=== PATIENT | female | born 1960 | race Caucasian/White ===

== ENCOUNTER → 2016-12-22 | Outpatient (CLI) | payer BC ==
[2016-06-22 21:34] VITALS: BP 168/100
[~2016-12-22] MED LIST: ASPI-482 PO; CETI10TA16 PO; CIPR250T30 PO; CIPR500T94 PO; HYDR-971 PO; METR500T8 PO; PROG100C2 PO; SIMV20TA3 PO; TRIA10.8 NS; ZOLP5TAB5 PO; [UNRECOGNIZED DRUG - CODE] TP
--- NOTE | 2016-12-22 13:54 | KCIC ---
Bilateral digital screening mammograms: Reason for examination: Routine screening. Comparison is made to previous studies dated 05/07/2015 and 05/03/2014. The skin and nipples show no abnormalities. No abnormal axillary lymph nodes are seen. The breast parenchyma shows scattered fibroglandular density. (Breast density: Category B.) There are no dominant masses, suspicious calcifications or architectural distortions. Impression: No evidence of malignancy. Recommend routine screening. BI-RADS Category 1: Negative. "Our facility is accredited by the [employer] Mammography [employer]." This patient's information has been entered into a reminder system for the patient to be notified with the results of her examination and a target date for the next mammogram. Electronically signed by: Asia Coleman MD (12/22/2016 1:51 PM)
== END | disposition home or self-care (01) ==
LOC: KCIC MAMMO 12:00
PROVIDERS: ATTEND Obstetrics & Gynecology
DX: Z12.31 Encounter for screening mammogram for malignant neoplasm of breast (principal)
CPT/HCPCS: G0202; 77067

== ENCOUNTER 2019-06-05 06:57 | Emergency (ER) | payer SELFPAY ==
[~2019-06-05] VITALS: Ht 165.1 cm; Wt 65.3 kg
[~2019-06-05 06:57] MED LIST changes: +HYDR-3164 PO; -HYDR-971 PO; +METR-34 PO; -METR500T8 PO; +PROG100C10 PO; -PROG100C2 PO; +SIMV20TA18 PO; -SIMV20TA3 PO
[2019-06-05] MEDS ORDERED: IV NORMAL SALINE 1000ML BAG 1,000 ML IV SCH (07:13)
[2019-06-05] MEDS ORDERED: KETOROLAC 30 MG/ML VIAL. IV ONE (07:15)
--- NOTE | 2019-06-05 07:18 | PHYS DOC ---
Past Medical History Past Medical History: CAD, COPD, Diverticulitis, High Cholesterol Additional Past Medical Histor: 20% & 40% cardiac occussions, menapusal Past Surgical History: Other Additional Past Surgical Histo: elbow, neck Alcohol Use: Heavy Drug Use: None Adult General Chief Complaint Chief Complaint: ABDOMINAL PAIN [facility] HPI Patient is a 59 year old female patient with history of dyslipidemia, coronary artery disease, COPD and diverticulitis who presents with complaint of abdominal pain. Patient complaining of intermittent episodes of lower abdominal and supra pubic pain that started 5 days ago without radiation as a aching pain and rated her pain 3 or 4. Patient states she has constipation and took MiraLAX and had 3 episodes of a small amount of hard stool with bright red blood when she wiped herself. Patient states she woke up at 2 AM today because of severe suprapubic sharp pain with radiation to left flank as a constant pain without nausea, vomiting, urinary symptoms, fever and chills, anorexia. Patient had flatus and urinated without problem today. Patient rated her pain 7/10 at arrival to ER. Review of Systems Review of Systems Constitutional: Denies fever or chills [] Eyes: Denies change in visual acuity, redness, or eye pain [] HENT: Denies nasal congestion or sore throat [] Respiratory: Denies cough or shortness of breath [] Cardiovascular: No additional information not addressed in HPI [] GI: Reports abdominal pain, constipation, denies nausea, vomiting, bloody stools or diarrhea [] : Denies dysuria or hematuria [] Musculoskeletal: Denies back pain or joint pain [] Integument: Denies rash or skin lesions [] Neurologic: Denies headache, focal weakness or sensory changes [] Endocrine: Denies polyuria or polydipsia [] All other systems were reviewed and found to be within normal limits, except as documented in this note. Current Medications Current Medications Current Medications Medications (Trade) Dose Ordered Sig/Dewayne Start Time Stop Time Status Last Admin Dose Admin Ketorolac Tromethamine (Toradol 30mg Vial) 30 mg 1X ONCE 06/05/19 07:15 06/05/19 07:17 DC 06/05/19 07:42 30 MG Sodium Chloride 1,000 ml @ 1,000 mls/hr Q1H 06/05/19 07:13 06/05/19 08:12 DC 06/05/19 07:43 1,000 MLS/HR Allergies Allergies Allergies Coded Allergies Type Severity Reaction Last Updated Verified Sulfa (Sulfonamide Antibiotics) Allergy Unknown anaphalxis 08/29/15 Yes Physical Exam Physical Exam Constitutional: Well developed, well nourished, moderate distress, non-toxic a ppearance. [] HENT: Normocephalic, atraumatic, bilateral external ears normal, oropharynx moist, no oral exudates, nose normal. [] Eyes: PERRLA, EOMI, conjunctiva normal, no discharge. [] Neck: Normal range of motion, no tenderness, supple, no stridor. [] Cardiovascular:Heart rate regular rhythm, no murmur [] Lungs & Thorax: Bilateral breath sounds clear to auscultation [] Abdomen: Bowel sounds normal, soft, left lower quadrant and suprapubic guarding, no tenderness, no masses, no pulsatile masses. [] Skin: Warm, dry, no erythema, no rash. [] Back: No tenderness, no CVA tenderness. [] Extremities: No tenderness, no cyanosis, no clubbing, ROM intact, no edema. [] Neurologic: Alert and oriented X 3, normal motor function, normal sensory function, no focal deficits noted. [] Psychologic: Affect normal, judgement normal, mood normal. [] Current Patient Data Vital Signs Vital Signs Date Time Temp Pulse Resp B/P (MAP) Pulse Ox O2 Delivery O2 Flow Rate FiO2 06/05/19 07:17 97.9 78 16 130/89 (103) 98 Room Air 97.9 Lab Values Laboratory Tests Test 06/05/19 07:16 White Blood Count 5.9 x10^3/uL (4.0-11.0) Red Blood Count 4.55 x10^6/uL (3.50-5.40) Hemoglobin 14.6 g/dL (12.0-15.5) Hematocrit 43.9 % (36.0-47.0) Mean Corpuscular Volume 96 fL (79-100) Mean Corpuscular Hemoglobin 32 pg (25-35) Mean Corpuscular Hemoglobin Concent 33 g/dL (31-37) Red Cell Distribution Width 14.1 % (11.5-14.5) Platelet Count 352 x10^3/uL (140-400) Neutrophils (%) (Auto) 51 % (31-73) Lymphocytes (%) (Auto) 35 % (24-48) Monocytes (%) (Auto) 9 % (0-9) Eosinophils (%) (Auto) 5 % (0-3) H Basophils (%) (Auto) 1 % (0-3) Neutrophils # (Auto) 3.0 x10^3/uL (1.8-7.7) Lymphocytes # (Auto) 2.1 x10^3/uL (1.0-4.8) Monocytes # (Auto) 0.5 x10^3/uL (0.0-1.1) Eosinophils # (Auto) 0.3 x10^3/uL (0.0-0.7) Basophils # (Auto) 0.1 x10^3/uL (0.0-0.2) Prothrombin Time 12.2 SEC (11.7-14.0) Prothrombin Time INR 0.9 (0.8-1.1) Urine Collection Type Unknown Urine Color Yellow Urine Clarity Clear Urine pH 5.5 Urine Specific [place] 1.025 Urine Protein Negative mg/dL (NEG-TRACE) Urine Glucose (UA) Negative mg/dL (NEG) Urine Ketones (Stick) Negative mg/dL (NEG) Urine Blood Moderate (NEG) Urine Nitrite Negative (NEG) Urine Bilirubin Negative (NEG) Urine Urobilinogen Dipstick 0.2 mg/dL (0.2 mg/dL) Urine Leukocyte Esterase Moderate (NEG) Urine RBC 1-2 /HPF (0-2) Urine WBC 5-10 /HPF (0-4) Urine Squamous Epithelial Cells Mod /LPF Urine Bacteria Moderate /HPF (0-FEW) Urine Mucus Slight /LPF Sodium Level 139 mmol/L (136-145) Potassium Level 3.5 mmol/L (3.5-5.1) Chloride Level 101 mmol/L (98-107) Carbon Dioxide Level 26 mmol/L (21-32) Anion Gap 12 (6-14) Blood Urea Nitrogen 14 mg/dL (7-20) Creatinine 1.0 mg/dL (0.6-1.0) Estimated GFR (Cockcroft-Gault) 56.6 BUN/Creatinine Ratio 14 (6-20) Glucose Level 100 mg/dL (70-99) H Calcium Level 9.2 mg/dL (8.5-10.1) Total Bilirubin 0.3 mg/dL (0.2-1.0) Aspartate Amino Transferase (AST) 18 U/L (15-37) Alanine Aminotransferase (ALT) 20 U/L (14-59) Alkaline Phosphatase 82 U/L (46-116) Total Protein 7.9 g/dL (6.4-8.2) Albumin 3.6 g/dL (3.4-5.0) Albumin/Globulin Ratio 0.8 (1.0-1.7) L Lipase 180 U/L (73-393) Ethyl Alcohol Level < 10 mg/dL (0-10) Laboratory Tests 06/05/19 07:16 Laboratory Tests 06/05/19 07:16 EKG EKG [] Radiology/Procedures Radiology/Procedures [][facility] [address] [place] [address] IMAGING REPORT Signed PATIENT: CEFERINO COE JACCOUNT: [id number] : 1960 LOCATION: ER AGE: 59 SEX: F EXAM STATUS: REG ER ORD. PHYSICIAN: YASH CARRASCO MD REASON: left lower quadrant and suprapubic pain x several days PROCEDURE: CT ABDOMEN PELVIS WO CONTRAST CT STUDY OF THE ABDOMEN AND PELVIS WITHOUT CONTRAST CLINICAL INDICATIONS: Left lower quadrant and suprapubic pain for several days. TECHNIQUE: Noncontrast helical CT scanning of the abdomen and pelvis was performed. Without contrast, the sensitivity to detect organ pathology and GI tract pathology is decreased. PQRS compliance Statement One or more of the following individualized dose reduction techniques were utilized for this study: 1. Automated exposure control 2. Adjustment of the mA and/or kV according to patient size 3. Use of iterative reconstruction technique COMPARISON: June 22, 2016 FINDINGS: The liver and spleen and pancreas are unremarkable on this noncontrast study. The gallbladder is normal in no extrahepatic biliary ductal dilatation seen. No adrenal mass is evident. No hydronephrosis or hydroureter or urinary tract stone is evident. Urinary bladder is not distended. No renal mass is seen on either side on this noncontrast study. No focal aneurysmal dilatation of the abdominal aorta is seen. No enlarged abdominal or pelvic lymphadenopathy is evident. Sigmoid diverticulosis is seen. There is mild pericolonic inflammatory change of the distal sigmoid colon consistent with mild diverticulitis. No free fluid or abscess or free intraperitoneal air is evident. No obstructive bowel pattern is evident. The appendix and terminal ileum are unremarkable. No lung base consolidative infiltrate is seen. No lytic process is seen. IMPRESSION: Mild sigmoid diverticulitis. Electronically signed by: Benjamin Montes MD (06/05/2019 7:51 AM) [facility] DICTATED and SIGNED BY: BENJAMIN MONTES MD DATE: 06/05/19 0751 Course & Med Decision Making Course & Med Decision Making Pertinent Labs and Imaging studies reviewed. (See chart for details) Evaluation of patient in ER showed 15-year-old female patient with complaining of lower abdominal pain intermittently for the last several days that getting worse since this morning. Patient admitted drinking alcohol 3 to 4 times a day. Patient felt better with IV fluid and Toradol and rated her pain 2/10. Labs was unremarkable except for mild UTI. CT abdomen and pelvis showed mild diverticulitis. Plan discharge patient home with diagnosis of diverticulitis and UTI and prescription of flexion and Cipro. I've spoken with the patient and/or caregivers. I've explained the patient's condition, diagnosis and treatment plan based on information available to me at this time. I've answered the patient's and/or caregivers questions and addressed any concerns. The patient and/or caregivers have a good understanding the patient's diagnosis, condition and treatment plan as can be expected at this point. Vital signs have been stabilized. The patient's condition is stable for discharge from the emergency department. The patient will pursue further outpatient evaluation with her primary care provider or other designated consulting physician as outlined in the discharge instructions. Patient and/or caregivers are agreeable to this plan of care and follow-up instructions have been explained in detail. The patient and/or caregivers have received these instructions in written format and expressed understanding of these discharge instructions. The patient and her caregivers are aware that if any significant change in condition or worsening of symptoms should prompt him to immediately return to this of the closest emergency department. If an emergent department is not readily available I would encourage him to call 911. Bernard Disclaimer Bernard Disclaimer This electronic medical record was generated, in whole or in part, using a voice recognition dictation system. Departure Departure Impression: Primary Impression: Acute diverticulitis Additional Impression: UTI (urinary tract infection) Disposition: 01 HOME, SELF-CARE (at 0 [phone]) Condition: IMPROVED Referrals: BARB COLLAZO MD (PCP) Patient Instructions: Diverticulitis, Urinary Tract Infection Additional Instructions: Drink plenty of liquids Follow-up with your primary care physician in 3-5 days Return to ER if not getting better Do not take solid food for the next 24 hours Scripts Naproxen (NAPROSYN) 500 Mg Tablet 1 TAB PO BID for pain, #20 TAB Prov: YASH CARRASCO MD 06/05/19 Metronidazole (FLAGYL) 500 Mg Tablet 1 TAB PO Q8HRS, #21 TAB Prov: YASH CARRASCO MD 06/05/19 Ciprofloxacin Hcl (CIPRO) 250 Mg Tablet 1 TAB PO BID for infection, #14 TAB Prov: YASH CARRASCO MD 06/05/19 Problem Qualifiers Additional Impression: UTI (urinary tract infection) Urinary tract infection type: site unspecified Hematuria presence: without hematuria Qualified Codes: N39.0 - Urinary tract infection, site not specified YASH CARRASCO MD Jun 05, 2019 07:18
[2019-06-05 07:28] LABS: BASO # 0.1 x10^3/uL (0.0-0.2); BASO % 1 % (0-3); BILIRUBIN,URINE NEGATIVE (NEG); CLARITY,URINE CLEAR; COLOR,URINE YELLOW; EOS # 0.3 x10^3/uL (0.0-0.7); EOS % 5 % (0-3); HEMATOCRIT 43.9 % (36.0-47.0); HEMOGLOBIN 14.6 g/dL (12.0-15.5); LYMPH # 2.1 x10^3/uL (1.0-4.8); LYMPH % 35 % (24-48); MEAN CORPUSCULAR HEMOGLOBIN 32 pg (25-35); MEAN CORPUSCULAR HGB CONC 33 g/dL (31-37); MEAN CORPUSCULAR VOLUME 96 fL (79-100); MONO # 0.5 x10^3/uL (0.0-1.1); MONO % 9 % (0-9); NEUT % 51 % (31-73); NITRITE,URINE NEGATIVE (NEG); PH,URINE 5.5; PLATELET COUNT 352 x10^3/uL (140-400); PROTEIN,URINE NEGATIVE (NEG-TRACE); RED BLOOD COUNT 4.55 x10^6/uL (3.50-5.40); RED CELL DISTRIBUTION WIDTH 14.1 % (11.5-14.5); UROBILINOGEN,URINE 0.2 mg/dL (0.2 mg/dL); WHITE BLOOD COUNT 5.9 x10^3/uL (4.0-11.0)
[2019-06-05 07:45] LABS: BACTERIA,URINE MODERATE /HPF (0-FEW); SQUAMOUS EPITHELIAL CELL,UR MOD /LPF
[2019-06-05 07:54] LABS: CALCIUM 9.2 mg/dL (8.5-10.1); GFR 56.6; POTASSIUM 3.5 mmol/L (3.5-5.1)
--- NOTE | 2019-06-05 07:54 | RAD ---
CT STUDY OF THE ABDOMEN AND PELVIS WITHOUT CONTRAST CLINICAL INDICATIONS: Left lower quadrant and suprapubic pain for several days. TECHNIQUE: Noncontrast helical CT scanning of the abdomen and pelvis was performed. Without contrast, the sensitivity to detect organ pathology and GI tract pathology is decreased. PQRS compliance Statement One or more of the following individualized dose reduction techniques were utilized for this study: 1. Automated exposure control 2. Adjustment of the mA and/or kV according to patient size 3. Use of iterative reconstruction technique COMPARISON: June 22, 2016 FINDINGS: The liver and spleen and pancreas are unremarkable on this noncontrast study. The gallbladder is normal in no extrahepatic biliary ductal dilatation seen. No adrenal mass is evident. No hydronephrosis or hydroureter or urinary tract stone is evident. Urinary bladder is not distended. No renal mass is seen on either side on this noncontrast study. No focal aneurysmal dilatation of the abdominal aorta is seen. No enlarged abdominal or pelvic lymphadenopathy is evident. Sigmoid diverticulosis is seen. There is mild pericolonic inflammatory change of the distal sigmoid colon consistent with mild diverticulitis. No free fluid or abscess or free intraperitoneal air is evident. No obstructive bowel pattern is evident. The appendix and terminal ileum are unremarkable. No lung base consolidative infiltrate is seen. No lytic process is seen. IMPRESSION: Mild sigmoid diverticulitis. Electronically signed by: Jerardo Montes MD (06/05/2019 7:51 AM) [facility]
[2019-06-05 08:00] LABS: ALBUMIN 3.6 g/dL (3.4-5.0); ALBUMIN/GLOBULIN RATIO 0.8 (1.0-1.7); TOTAL BILIRUBIN 0.3 mg/dL (0.2-1.0); TOTAL PROTEIN 7.9 g/dL (6.4-8.2)
[2019-06-05 08:05] LABS: PROTHROMBIN TIME PATIENT 12.2 SEC (11.7-14.0)
[2019-06-05] MEDS ORDERED: NAPR-683 PO (08:42)
[2019-06-05] MEDS ORDERED: CIPR250T30 PO (08:42)
[2019-06-05] MEDS ORDERED: METR500T PO (08:42)
[2019-06-05 09:30] VITALS: BP 132/81
== END 2019-06-05 09:30 | disposition home or self-care (01) ==
LOC: ER 06:57
DX: K57.32 Diverticulitis of large intestine without perforation or abscess without bleeding (principal); N39.0 Urinary tract infection, site not specified; I25.2 Old myocardial infarction; J44.9 Chronic obstructive pulmonary disease, unspecified; E78.00 Pure hypercholesterolemia, unspecified; F10.20 Alcohol dependence, uncomplicated; Z88.2 Allergy status to sulfonamides
CPT/HCPCS: 36415; 74176; 80053; 81001; 83690; 85025; 85610; 87086; 96374; 99285; G0480; J1885; J7030

== ENCOUNTER → 2020-08-30 | Outpatient (CLI) | payer SELFPAY ==
[~2020-08-30] MED LIST changes: +METR500T PO; +NAPR-683 PO
--- NOTE | 2020-08-30 18:05 | KCIC ---
BILATERAL SCREENING MAMMOGRAM, 3-D History: Routine screening. Comparison: Bilateral mammogram December 22, 2016. Technique: MLO and CC digital tomosynthesis (3D) images obtained. Radiologist reviewed these images on dedicated workstation. Findings: Breast Tissue Density B : There are scattered areas of fibroglandular density. There are no dominant masses, suspicious microcalcifications or architectural distortion. IMPRESSION: No mammographic evidence of malignancy. Recommend routine screening. BI-RADS category 1: Negative. The images were reviewed with computer-aided detection. Patient information is entered into reminder system with a target due date for the next screening [facility]. Mammography is the most sensitive method for finding small breast cancers, but it does not detect the m all and is not a substitute for careful clinical examination. A negative mammogram does not negate a clinically suspicious finding and should not result in delay in biopsying a clinically suspicious a bnormality. "Our facility is accredited by the [employer] Mammography Program." Electronically signed by: John Narayanan MD (08/30/2020 6:03 PM) [email or web address]
== END ==
LOC: KCIC MAMMO 08:28
PROVIDERS: ATTEND Family Medicine
DX: Z12.31 Encounter for screening mammogram for malignant neoplasm of breast (principal)
CPT/HCPCS: 77067

== ENCOUNTER → 2021-09-05 | Outpatient (CLI) | payer OTHER ==
--- NOTE | 2021-09-08 12:12 | KCIC ---
Bilateral digital screening mammograms: Reason for examination: Routine screening. Comparison is made to previous studies dated back to 05/07/2015. Interpretation was made with the benefit of CAD. The skin and nipples show no abnormalities. No abnormal axillary lymph nodes are seen. The breast par enchyma shows scattered fibroglandular density. (Breast density: Category B.) There are no dominant m asses, suspicious calcifications or architectural distortions. Impression: No evidence of malignancy. Recommend routine screening. BI-RADS Category 1: Negative. "Our facility is accredited by the [employer] Mammography [employer]." This patient's information has been entered into a reminder system for the patient to be notified wit h the results of her examination and a target date for the next mammogram. Electronically signed by: Asia Coleman MD (09/08/2021 12:10 PM) [email or web address]
== END ==
LOC: KCIC MAMMO 13:51
PROVIDERS: ATTEND Family Medicine
DX: Z12.31 Encounter for screening mammogram for malignant neoplasm of breast (principal)
CPT/HCPCS: 77067